=== PATIENT | male | born 1995 | race Caucasian/White ===

== ENCOUNTER 2023-07-05 11:26 | Emergency (ER) | payer SELFPAY ==
[2023-07-05 11:36] VITALS: TEMP 98.7; BMI 40.3
[2023-07-05] MEDS ORDERED: ALBUTEROL SO4 0.083% IH SOL 2.5 MG/3 ML VIAL.NEB. NEB ONE (13:01)
[2023-07-05] MEDS: ALBUTEROL SO4 0.083% IH SOL 2.5 MG/3 ML VIAL.NEB. NEB ONE (13:03)
[2023-07-05] MEDS: ALBUTEROL SO4 2.5/IPRATROPIUM 0.5 INH SOL 3 ML VIAL.NEB. NEB ONE (13:03)
[2023-07-05] MEDS: SODIUM CHLORIDE 1,000 ML IV STA (14:02)
[2023-07-05 14:15] LABS: BASO % 0.5 % (0-2.0); EOS % 4.1 % (0-4.5); HEMATOCRIT 46.4 % (35.4-49); LYMPH % 25.4 % (8-40); MCHC 34.3 g/dl (32.0-35.9); MEAN CELL VOLUME 87.3 fl (80-96); MEAN PLT VOLUME 8.3 fl (7.5-11.1); MONO % 9.2 % (3.8-10.2); NEUT % 60.8 % (42.8-82.8); PLATELET COUNT 247 10^3/uL (134-434); RBC 5.32 M/mm3 (4.00-5.60); RDW 13.1 % (11.9-15.9)
[2023-07-05 14:25] LABS: INR 0.94 (0.83-1.09); PROTHROMBIN TIME (PATIENT) 10.6 SEC (9.7-13.0)
[2023-07-05 14:28] LABS: ACTIVATED PTT 29.8 SECONDS (25.2-36.5)
[2023-07-05 14:38] LABS: ALBUMIN 3.9 g/dl (3.4-5.0)
[2023-07-05 14:39] LABS: BLOOD UREA NITROGEN 19.2 mg/dL (7-18)
[2023-07-05 14:41] LABS: CREATININE 0.9 mg/dL (0.55-1.3)
[2023-07-05 14:43] LABS: BILIRUBIN,TOTAL 0.3 mg/dL (0.2-1); TOT PROT 7.1 g/dl (6.4-8.2)
[2023-07-05 16:30] VITALS: BP 136/80; PULSE 82; RESP 19
== END 2023-07-05 16:54 | disposition home or self-care (01) ==
LOC: JERFT 11:26
PROC: 3E0F7GC Introduction of Other Therapeutic Substance into Respiratory Tract, Via Natural or Artificial Opening (ICD-10-PCS; principal; 2023-07-05)
PROC: 3E0337Z Introduction of Electrolytic and Water Balance Substance into Peripheral Vein, Percutaneous Approach (ICD-10-PCS; 2023-07-05)
DX: R05.9 Cough, unspecified (principal); R09.89 Other specified symptoms and signs involving the circulatory and respiratory systems; J40 Bronchitis, not specified as acute or chronic; Z20.822 Contact with and (suspected) exposure to COVID-19
CPT/HCPCS: 0241U-QW; 36415; 71046-TC-FY; 71275-TC; 80053; 82962; 85025; 85610; 85730; 93005; 93010; 99285-25; Q9967

== ENCOUNTER 2024-03-14 23:29 | Emergency (ER) | payer SELFPAY ==
[2024-03-14 23:42] VITALS: BP 144/90; PULSE 83; RESP 17; TEMP 98.6; BMI 42.9
[2024-03-15] MEDS ORDERED: MAG HYDROX/AL HYDROX/SIMETH 30 ML UNIT-DOSE CUP ONE (00:44)
[2024-03-15] MEDS: MAG HYDROX/AL HYDROX/SIMETH 30 ML UNIT-DOSE CUP PO ONE (01:05)
[2024-03-15 01:48] LABS: BASO % 0.4 % (0-2.0); EOS % 0.8 % (0-4.5); HEMATOCRIT 46.1 % (35.4-49); HEMOGLOBIN 15.9 GM/dL (11.7-16.9); LYMPH % 15.9 % (8-40); MCH 29.9 pg (25.7-33.7); MCHC 34.4 g/dl (32.0-35.9); MEAN CELL VOLUME 86.7 fl (80-96); MEAN PLT VOLUME 8.2 fl (7.5-11.1); MONO % 10.4 % (3.8-10.2); NEUT % 72.5 % (42.8-82.8); PLATELET COUNT 224 10^3/uL (134-434); RBC 5.32 M/mm3 (4.00-5.60); WHITE BLOOD COUNT 7.7 K/mm3 (4.0-10.0)
[2024-03-15 02:12] LABS: POTASSIUM 4.3 mmol/L (3.5-5.1)
[2024-03-15 02:14] LABS: ALBUMIN 3.9 g/dl (3.4-5.0); BLOOD UREA NITROGEN 11.6 mg/dL (7-18); CALCIUM 8.7 mg/dL (8.5-10.1)
[2024-03-15 02:19] LABS: BILIRUBIN,TOTAL 0.5 mg/dL (0.2-1); TOT PROT 7.3 g/dl (6.4-8.2)
== END 2024-03-15 02:36 | disposition home or self-care (01) ==
LOC: JER 23:29
DX: J10.1 Influenza due to other identified influenza virus with other respiratory manifestations (principal); R74.8 Abnormal levels of other serum enzymes; R06.02 Shortness of breath; R50.9 Fever, unspecified; R05.9 Cough, unspecified; M79.10 Myalgia, unspecified site; R07.89 Other chest pain; Z20.822 Contact with and (suspected) exposure to COVID-19
CPT/HCPCS: 0241U-QW; 36415; 71046-TC-FY; 80053; 84484; 85025; 93005; 93010; 99285-25